=== PATIENT | male | born 1945 | race Caucasian/White ===

== ENCOUNTER → 2016-08-20 | Day surgery (SDC) | payer OTHER ==
[~2016-08-20] MED LIST: DEXAMETHASONE SOD PHOS 4 MG/ML VIAL ONE; EPINEPHrine HCL (1:1000) 1 MG/ML VIAL ONE; LACTATED RINGER'S 1000 ML INJ 1,000 ML ONE; MIDAZOLAM HCL 2 MG/2 ML VIAL ONE; MOXIFLOXACIN 0.5% OPHT SOLN 3 ML BTL ONE; ONDANSETRON HCL 4 MG/2 ML VIAL IV PUSH ONE; PHENYLEPHRINE HCL 10% OPTH SOLN 5 ML BTL ONE; PROPOFOL 200 MG/20 ML AMP IV ONE; SODIUM CHLORIDE 0.9% INJ 10 ML ONE; TETRACAINE 0.5% OPTH SOLN 15 ML BTL ONE; TOBRAMYCIN/DEXAMETHASONE OPTH OINT 3.5 GM TUBE ONE; TRIAMCINOLONE ACETONIDE 40 MG/ML VIAL ONE; ceFAZolin INJ 1,000 MG VIAL ONE; prednisoLONE ACETATE 1% OPHT SUSP 5 ML BTL ONE
--- NOTE | 2016-08-21 10:43 | MP ---
cc: MARIO ALBERTO OSEGUERA MD DATE OF SURGERY 08/20/2016 POSTOPERATIVE DIAGNOSIS Epiretinal membrane, retinal distortion, metamorphopsia, retinal edema left eye. PROCEDURE Pars plana vitrectomy, removal of epiretinal membrane/internal limiting membrane, insertion of intravitreal Kenalog left eye. COMPLICATIONS None BLOOD LOSS Less than 115. ANESTHESIA Dr. Rapp, general INDICATIONS FOR PROCEDURE This is a delightful patient who presented with severe metamorphopsia and visual distortion of his left eye. The patient was found to have a severe epiretinal membrane with retinal distortion through his fovea. The patient elected for surgical correction to decrease the worsening of his visual acuity of his vision. The patient understands the risks, benefits, and alternatives and wished to proceed. PROCEDURE NOTE The left eye was prepped and draped in a sterile fashion with Betadine in the conjunctival fornix. A three port pars plana vitrectomy was established with a self-retaining infusion cannula. Core vitrectomy was carried out and posterior vitreous detachment ensured. The ERM/ILM complex was highlighted with ICG and removed with [place] ILM forceps. Scleral depression examination revealed no retinal holes, tears or detachments. Intravitreal Kenalog was instilled. Trocars removed and sclerotomies closed. Subconjunctival injection of Ancef and dexamethasone were given. The eye was patched with azithromycin ointment. The patient was brought to the recovery room in stable condition and continued followup with [facility] for his postoperative care. MD GOOD Merchant/DJL /11:29 AM /10:36 AM
== END | disposition home or self-care (01) ==
LOC: ESDC 08:13
PROVIDERS: ATTEND Ophthalmology
DX: H35.372 Puckering of macula, left eye (principal); H53.15 Visual distortions of shape and size; H35.81 Retinal edema; E11.9 Type 2 diabetes mellitus without complications
CPT/HCPCS: 00145; 67042; 82948; J0171; J0690; J1100; J2250; J2405; J3010; J3301; J7120